=== PATIENT | male | born 1970 | race African-American/Black ===

== ENCOUNTER 2021-08-02 05:47 | Inpatient (IN) | payer OTHER ==
[2021-08-02 06:04] VITALS: BMI 24.4
[2021-08-02 06:47] LABS: BASO % 1.1 % (0-2.0); EOS % 4.2 % (0-4.5); HEMATOCRIT 41.3 % (35.4-49); HEMOGLOBIN 14.1 GM/dL (11.7-16.9); LYMPH % 50.3 % (8-40); MCH 31.4 pg (25.7-33.7); MCHC 34.1 g/dl (32.0-35.9); MEAN PLT VOLUME 8.8 fl (7.5-11.1); MONO % 9.1 % (3.8-10.2); NEUT % 35.3 % (42.8-82.8); PLATELET COUNT 297 10^3/uL (134-434); RBC 4.48 M/mm3 (4.00-5.60); RDW 12.1 % (11.9-15.9)
[2021-08-02 06:57] LABS: INR 0.99 (0.83-1.09); PROTHROMBIN TIME (PATIENT) 11.4 SEC (9.7-13.0)
[2021-08-02 07:00] LABS: ACTIVATED PTT 31.1 SECONDS (25.2-36.5)
[2021-08-02 07:04] LABS: CHLORIDE 107 mmol/L (98-107); SODIUM 138 mmol/L (136-145)
[2021-08-02 07:06] LABS: ALBUMIN 3.3 g/dl (3.4-5.0); ANION GAP 6 MMOL/L (8-16); CALCIUM 8.8 mg/dL (8.5-10.1); CO2 25 mmol/L (21-32); GLUCOSE,RANDOM 101 mg/dL (74-106)
[2021-08-02 07:07] LABS: BLOOD UREA NITROGEN 22.4 mg/dL (7-18)
[2021-08-02 07:09] LABS: SGOT/AST 28 U/L (15-37); SGPT/ALT 35 U/L (13-61)
[2021-08-02 07:11] LABS: BILIRUBIN,TOTAL 0.3 mg/dL (0.2-1); TOT PROT 6.9 g/dl (6.4-8.2)
[2021-08-02 07:12] LABS: ALK PHOS 77 U/L (45-117)
[2021-08-02] MEDS ORDERED: ASPIRIN 81 MG CHEWABLE TABLETS PO ONE (08:00)
[2021-08-02] MEDS ORDERED: NITROGLYCERIN 25MG/D5W 250ML 25 MG/250 ML ML IVPB SCH (08:00)
[2021-08-02] MEDS ORDERED: ASPIRIN 81 MG CHEWABLE TABLETS ONE (08:33)
[2021-08-02] MEDS ORDERED: ACETAMINOPHEN 325 MG TABLET (FP) ONE (08:44)
[2021-08-02] MEDS ORDERED: ACETAMINOPHEN 325 MG TABLET (FP) PO ONE (09:24)
[2021-08-02] MEDS ORDERED: CLOPIDOGREL BISULFATE 300 MG TABLET PO ONE ×2 (09:30→11:20)
[2021-08-02] MEDS ORDERED: ENOXAPARIN NA (PORCINE) 80 MG/0.8 ML DISP.SYRIN SQ ONE ×2 (09:31→11:22)
[2021-08-02] MEDS ORDERED: ATORVASTATIN CA 80 MG TABLET (FP) PO ONE (10:54)
[2021-08-02] MEDS ORDERED: ATORVASTATIN CA 80 MG TABLET (FP) ONE (11:07)
[2021-08-02] MEDS: NITROGLYCERIN 25MG/D5W 250ML 25 MG/250 ML ML IVPB SCH ×2 (11:15→14:32)
[2021-08-02] MEDS ORDERED: TICAGRELOR 90 MG TABLET PO ONE (13:15)
[2021-08-02 14:39] VITALS: TEMP 98.7
[2021-08-02 17:49] VITALS: BP 148/98; PULSE 59
== END 2021-08-02 18:20 | disposition short-term general hospital (02) | DRG 281 ==
LOC: JER 05:47 → JERBED 10:43 → JICU 11:49
PROVIDERS: ADMIT Internal Medicine Pulmonary Disease; ATTEND Internal Medicine Pulmonary Disease
DX: I21.4 Non-ST elevation (NSTEMI) myocardial infarction (principal); I16.1 Hypertensive emergency
CPT/HCPCS: 36415; 71045-TC-FY; 80053; 84484; 85025; 85379; 85610; 85730; 93005; 93010; 99285-25; C9803-CS; U0003; U0005

== ENCOUNTER 2021-08-06 15:33 | Inpatient (IN) | payer OTHER ==
[2021-08-06 16:27] VITALS: TEMP 98.4; BMI 25.1
[2021-08-06 17:07] LABS: BASO % 0.9 % (0-2.0); EOS % 3.2 % (0-4.5); HEMATOCRIT 41.1 % (35.4-49); HEMOGLOBIN 14.4 GM/dL (11.7-16.9); LYMPH % 28.7 % (8-40); MCH 31.9 pg (25.7-33.7); MEAN PLT VOLUME 8.4 fl (7.5-11.1); MONO % 7.2 % (3.8-10.2); PLATELET COUNT 336 10^3/uL (134-434); RBC 4.52 M/mm3 (4.00-5.60); WHITE BLOOD COUNT 7.8 K/mm3 (4.0-10.0)
[2021-08-06] MEDS ORDERED: SODIUM CHLORIDE 0.9% 500 ML INFUS.BAG IV ONE ×2 (17:11→21:37)
[2021-08-06] MEDS ORDERED: FAMOTIDINE 20 MG/50 ML IVPB 20 MG/50 ML MG IVPB ONE (17:11)
[2021-08-06 17:20] LABS: ACTIVATED PTT 30.8 SECONDS (25.2-36.5); INR 0.98 (0.83-1.09); PROTHROMBIN TIME (PATIENT) 11.3 SEC (9.7-13.0)
[2021-08-06] MEDS ORDERED: FAMOTIDINE 10 MG/ML VIAL IVPB ONE (17:29)
[2021-08-06 17:30] LABS: CHLORIDE 106 mmol/L (98-107); SODIUM 141 mmol/L (136-145)
[2021-08-06 17:32] LABS: ALBUMIN 3.5 g/dl (3.4-5.0); ANION GAP 6 MMOL/L (8-16); CALCIUM 9.1 mg/dL (8.5-10.1); CO2 28 mmol/L (21-32)
[2021-08-06 17:33] LABS: GLUCOSE,RANDOM 93 mg/dL (74-106)
[2021-08-06 17:36] LABS: SGOT/AST 30 U/L (15-37); SGPT/ALT 46 U/L (13-61)
[2021-08-06 17:37] LABS: BILIRUBIN,TOTAL 0.2 mg/dL (0.2-1); TOT PROT 7.7 g/dl (6.4-8.2)
[2021-08-06 17:38] LABS: ALK PHOS 86 U/L (45-117); BLOOD UREA NITROGEN 15.6 mg/dL (7-18)
[2021-08-06] MEDS ORDERED: ASPIRIN 81 MG CHEWABLE TABLETS PO ONE (18:15)
[2021-08-06] MEDS ORDERED: ASPIRIN 81 MG CHEWABLE TABLETS ONE (18:22)
[2021-08-06] MEDS ORDERED: POLYETHYLENE GLYCOL (HEALTHYLAX) 3350 17 GM PACKET PO PRN (20:50)
[2021-08-06] MEDS ORDERED: ACETAMINOPHEN 325 MG TABLET (FP) PO PRN (20:50)
[2021-08-06] MEDS ORDERED: MAG HYDROX/AL HYDROX/SIMETH 30 ML UNIT-DOSE CUP PO PRN (21:05)
[2021-08-06] MEDS ORDERED: HEPARIN NA (PORCINE) 5,000 UNITS/ML 1ML VIAL IVPUSH PRN ×4 (21:31→21:42)
[2021-08-06 21:32] VITALS: BP 99/61; PULSE 54
[2021-08-06] MEDS ORDERED: HEPARIN INFUSION - 25,000 UNITS/500 ML INFUS.BAG IVPB ONE (21:41)
[2021-08-06] MEDS ORDERED: HEPARIN NA (PORCINE) 5,000 UNITS/ML 1ML VIAL ONE (21:41)
[2021-08-06] MEDS ORDERED: HEPARIN - 25,000 UNIT in SODIUM CHLORIDE 495 ML IV SCH (21:45)
[2021-08-07] MEDS ORDERED: PANTOPRAZOLE 40 MG TABLET PO SCH (10:00)
[2021-08-07] MEDS ORDERED: ASPIRIN 325 MG ENTERIC COATED TABLET (FP) PO SCH (10:00)
[2021-08-07] MEDS ORDERED: ENOXAPARIN NA (PORCINE) 40 MG/0.4 ML DISP.SYRIN SQ SCH (10:00)
[2021-08-07] MEDS ORDERED: LOSARTAN POTASSIUM 25 MG TABLET PO SCH (10:00)
[2021-08-07] MEDS ORDERED: FLUTICASONE/SALMETEROL 100 MCG/50 MCG DISKUS IH SCH (10:00)
== END 2021-08-06 22:26 | disposition short-term general hospital (02) | DRG 282 ==
LOC: JER 15:33 → JERBED 18:37
PROVIDERS: ADMIT Hospitalist; ATTEND Internal Medicine
DX: I21.4 Non-ST elevation (NSTEMI) myocardial infarction (principal); I10 Essential (primary) hypertension; R10.13 Epigastric pain; R00.1 Bradycardia, unspecified
CPT/HCPCS: 36415; 71046-TC-FY; 71275-TC; 80053; 83735; 84443; 84484; 85025; 85610; 85730; 93005; 93010; 99285-25; C9803-CS; J1644; Q9967; U0003; U0005

== ENCOUNTER 2022-05-07 20:27 | Observation (INO) | payer OTHER ==
[2022-05-07 22:47] LABS: BASO % 1.1 % (0-2.0); EOS % 1.5 % (0-4.5); HEMATOCRIT 31.5 % (35.4-49); HEMOGLOBIN 11.4 GM/dL (11.7-16.9); LYMPH % 53.6 % (8-40); MCH 32.4 pg (25.7-33.7); MCHC 36.2 g/dl (32.0-35.9); MEAN CELL VOLUME 89.5 fl (80-96); MEAN PLT VOLUME 8.9 fl (7.5-11.1); MONO % 6.4 % (3.8-10.2); NEUT % 37.4 % (42.8-82.8); PLATELET COUNT 217 10^3/uL (134-434); RBC 3.52 M/mm3 (4.00-5.60); RDW 12.3 % (11.9-15.9); WHITE BLOOD COUNT 5.5 K/mm3 (4.0-10.0)
[2022-05-07 23:08] LABS: CALCIUM 8.7 mg/dL (8.5-10.1)
[2022-05-07 23:10] LABS: ALBUMIN 3.7 g/dl (3.4-5.0); BLOOD UREA NITROGEN 28.4 mg/dL (7-18)
[2022-05-07 23:12] LABS: CREATININE 1.7 mg/dL (0.55-1.3)
[2022-05-07 23:13] LABS: BILIRUBIN,TOTAL 0.5 mg/dL (0.2-1)
[2022-05-07 23:15] LABS: EPI CELLS 2 /uL (0-25.1); HYALINE CASTS 1 /uL (0-3.1); PH,URINE 6.5 (5.0-8.0); URINE APPEARANCE CLEAR; URINE BACTERIA 3 /uL (0-1359); URINE BILIRUBIN NEGATIVE (NEGATIVE); URINE COLOR YELLOW; URINE GLUCOSE (UA) NEGATIVE (NEGATIVE); URINE KETONE NEGATIVE (NEGATIVE); URINE LEUK ESTERASE NEGATIVE (NEGATIVE); URINE NITRITE NEGATIVE (NEGATIVE); URINE PROTEIN 1+ (NEGATIVE); URINE RBC 857 /uL (0-23.9); URINE UROBILINOGEN 0.2 mg/dL (0.2-1.0); URINE WBC 5 /uL (0-25.8)
[2022-05-07 23:55] LABS: PHOSPHOROUS 4.8 mg/dL (2.5-4.9)
[2022-05-08] MEDS ORDERED: SODIUM CHLORIDE 1,000 ML IV SCH (03:15)
[2022-05-08 07:02] LABS: BASO % 1.1 % (0-2.0); EOS % 3.1 % (0-4.5); HEMATOCRIT 34.5 % (35.4-49); HEMOGLOBIN 12.2 GM/dL (11.7-16.9); LYMPH % 59.4 % (8-40); MCH 31.6 pg (25.7-33.7); MCHC 35.5 g/dl (32.0-35.9); MEAN PLT VOLUME 9.6 fl (7.5-11.1); MONO % 7.9 % (3.8-10.2); NEUT % 28.5 % (42.8-82.8); PLATELET COUNT 228 10^3/uL (134-434); RBC 3.88 M/mm3 (4.00-5.60); RDW 12.2 % (11.9-15.9); WHITE BLOOD COUNT 5.4 K/mm3 (4.0-10.0)
[2022-05-08 08:22] LABS: ALBUMIN 3.7 g/dl (3.4-5.0); BILIRUBIN,TOTAL 0.9 mg/dL (0.2-1); BLOOD UREA NITROGEN 24.3 mg/dL (7-18); CALCIUM 8.9 mg/dL (8.5-10.1); CREATININE 1.5 mg/dL (0.55-1.3)
[2022-05-08] MEDS ORDERED: NIFEdipine E.R. 30 MG TABLET PO ONE (09:31)
[2022-05-08] MEDS ORDERED: NIFEdipine E.R. 90 MG TABLET PO SCH (10:00)
[2022-05-08] MEDS ORDERED: FLUTICASONE/SALMETEROL 100 MCG/50 MCG DISKUS IH SCH (10:00)
[2022-05-08] MEDS ORDERED: ASPIRIN 81 MG CHEWABLE TABLETS ONE (12:41)
[2022-05-08] MEDS ORDERED: ISOSORBIDE MONONITRATE 60 MG TAB.SR.24H (FP) PO ONE (12:41)
[2022-05-08] MEDS: ISOSORBIDE MONONITRATE 60 MG TAB.SR.24H (FP) PO SCH (12:46)
[2022-05-08] MEDS: ASPIRIN 81 MG CHEWABLE TABLETS PO SCH (12:46)
[2022-05-08] MEDS: SODIUM CHLORIDE 1,000 ML IV SCH (12:47)
[2022-05-08 17:19] VITALS: RESP 18
[2022-05-08 17:51] VITALS: BMI 25.9
[2022-05-08] MEDS ORDERED: ATORVASTATIN CA 40 MG TABLET (FP) PO SCH (22:00)
[2022-05-09] MEDS: SODIUM CHLORIDE 1,000 ML IV SCH (07:11)
[2022-05-09] MEDS ORDERED: amLODIPine BESYLATE 10 MG TABLET (FP) PO SCH (10:00)
[2022-05-09] MEDS: ISOSORBIDE MONONITRATE 60 MG TAB.SR.24H (FP) PO SCH (10:09)
[2022-05-09] MEDS: ASPIRIN 81 MG CHEWABLE TABLETS PO SCH (10:09)
[2022-05-09 10:10] LABS: CHLORIDE 110 mmol/L (98-107); SODIUM 140 mmol/L (136-145)
[2022-05-09 10:20] LABS: BASO % 0.7 % (0-2.0); EOS % 3.5 % (0-4.5); HEMATOCRIT 33.6 % (35.4-49); HEMOGLOBIN 11.7 GM/dL (11.7-16.9); LYMPH % 53.2 % (8-40); MCH 31.3 pg (25.7-33.7); MCHC 34.8 g/dl (32.0-35.9); MEAN CELL VOLUME 89.8 fl (80-96); MEAN PLT VOLUME 9.6 fl (7.5-11.1); MONO % 4.7 % (3.8-10.2); NEUT % 37.9 % (42.8-82.8); PLATELET COUNT 224 10^3/uL (134-434); RBC 3.75 M/mm3 (4.00-5.60); RDW 12.3 % (11.9-15.9); WHITE BLOOD COUNT 4.1 K/mm3 (4.0-10.0)
[2022-05-09 10:22] LABS: CALCIUM 8.5 mg/dL (8.5-10.1)
[2022-05-09 10:23] LABS: ALBUMIN 3.2 g/dl (3.4-5.0); ANION GAP 7 MMOL/L (8-16); BLOOD UREA NITROGEN 17.8 mg/dL (7-18); CO2 23 mmol/L (21-32); CREATININE 1.3 mg/dL (0.55-1.3); GLUCOSE,RANDOM 121 mg/dL (74-106); PHOSPHOROUS 3.5 mg/dL (2.5-4.9)
[2022-05-09 10:25] LABS: BILIRUBIN,TOTAL 0.4 mg/dL (0.2-1); TOT PROT 6.6 g/dl (6.4-8.2)
[2022-05-09 10:26] LABS: ALK PHOS 108 U/L (45-117); SGOT/AST 28 U/L (15-37); SGPT/ALT 47 U/L (13-61)
[2022-05-09 10:49] VITALS: BP 144/89; PULSE 62; TEMP 99
[2022-05-09 13:01] LABS: URIC ACID 5.8 mg/dL (2.6-7.2)
[2022-05-12 15:07] LABS: TOTAL PROTEIN, URINE 20.4 mg/dL (Not Estab.)
[2022-05-12 20:08] LABS: ATYPICAL pANCA <1:20 titer (Neg:<1:20); C-ANCA <1:20 titer (Neg:<1:20)
== END 2022-05-09 12:58 | disposition home or self-care (01) ==
LOC: JER 20:27 → JERBED 05-08 00:15 → J6S 05-08 17:34
PROVIDERS: ADMIT Internal Medicine; ATTEND Internal Medicine
PROC: 3E0337Z Introduction of Electrolytic and Water Balance Substance into Peripheral Vein, Percutaneous Approach (ICD-10-PCS; principal; 2022-05-08)
DX: I25.119 Atherosclerotic heart disease of native coronary artery with unspecified angina pectoris (principal); N17.9 Acute kidney failure, unspecified; J45.909 Unspecified asthma, uncomplicated; R31.9 Hematuria, unspecified; R20.2 Paresthesia of skin; R20.0 Anesthesia of skin; I25.10 Atherosclerotic heart disease of native coronary artery without angina pectoris; F41.0 Panic disorder [episodic paroxysmal anxiety]; I11.9 Hypertensive heart disease without heart failure; I21.4 Non-ST elevation (NSTEMI) myocardial infarction; Z87.891 Personal history of nicotine dependence; Z91.018 Allergy to other foods; Z91.012 Allergy to eggs
CPT/HCPCS: 36415; 71046-TC-FY; 76775-TC; 76856-TC; 80053; 81003; 82436; 82550; 82553; 82570; 83520; 83735; 83930; 83935; 84100; 84133; 84155; 84156; 84157; 84165; 84300; 84550; 85025; 86038; 86256; 93005; 93010; 96360; 96361; 99285-25; C9803-CS; G0378; U0003; U0005